=== PATIENT | female | born 1960 | race Caucasian/White ===

== ENCOUNTER → 2019-10-04 | Outpatient (CLI) | payer OTHER ==
[~2019-10-04] VITALS: Ht 180.3 cm; Wt 89.4 kg
[~2019-10-04] MED LIST: CLARITIN10 M3 PO; MELOXICAM15 MG PO; MULTIVITAMINS1 EAC7 PO; NEURONTIN300 MG PO; PRINIVIL20 M1 PO; PROBIOTIC1 EAC7 PO; PROTONIX40 M2 PO; TOPAMAX100 MG PO; TRAMADOL 50 MG50 MG PO; TRAMADOL HCL E100 MG PO; TYLENOL ARTHRI650 MG PO; VITAMIN B12-FO1 EAC1 PO; VITAMIN D3 COM1 EACH PO; ZANAFLEX4 M2 PO
[2019-10-04 08:43] VITALS: BP 123/70
--- NOTE | 2019-10-04 09:07 | NUR ---
Pain Clinic Assessment: 1. History of Osteoarthritis: HIPS History of Rheumatoid Arthritis: NONE 2. Height: 5 ft. 11 in. 180.3 cm. Weight: 197.0 lb. oz. 89.359 kg. Patient's BMI: 27.5 3. Vital Signs: BP: 123/70 Pulse: 81 Resp: 16 Temp: 02 Sat: 100 ECG Mon: 4. Pain Intensity: 3 10 MAX 5. Fall Risk: Dizziness: N Needs help standing or walking: Y Fallen in the last 3 months: N Fall risk comments: 6. Patient on Blood Thinner: None 7. History of Hypertension: N 8. Opioid Therapy greater than 6 weeks: N Opiate Contract Signed: 9. Risk Assessment Tool Provided: 10. Functional Assessment Tool: 11. Recreational Drug Use: Never Drug Type: Tobacco Use: Never Smoker Tobacco Type: Amount or Packs/day: How Many Years: Alcohol Use: No Frequency: Quant:
--- NOTE | 2019-10-18 11:25 | HPC ---
[facility] [address] [address] PAIN MANAGEMENT CONSULTATION Name: AUSTYN GARRIDO Room #: REG [facility] VenkataYoselyn#: [id number] Admission: 10/04/19 Attend Phys: Cj Mon MD Discharge: Date of : 56 Report #: [id number] THIS REPORT FOR: cc: MILAGROS KNOWLES Physician not on staff Cj Mon MD ~ CC: MILAGROS Mon Physician staff DATE OF SERVICE: 10/04/2019 CHIEF COMPLAINT: Left hip pain. HISTORY: The patient is a 59-year-old female who has been referred to the pain clinic for evaluation. The patient has a history of chronic arthritis. She has had problems with her hips since 2013. Majority of her pain occurs at night. She describes it as a constant discomfort that refuses to leave. "It's like a cramp, I just want relief." Notes that the pain is worse when she is sleeping or trying to sleep. Pain improves when she changes position at times. Describes as continuous, aching and rates it as a 3/10 today. It can average between 3-8/10. She has been told that she has left hip, which is quite arthritic. It needs replacement. She was considering having the knee replaced. She has had a bicuspid heart valve. Her heart problem became more problematic and she required valve replacement. She underwent the heart replacement and now is contemplating hip surgery in the near future. Pain is quite problematic. She is unable to rest because of the discomfort. She has used tramadol and found it beneficial. She has used tizanidine for muscle relaxant. She has been referred to the pain center for management of her discomfort at this point. ALLERGIES: CODEINE, OXYCODONE, PAIN MEDICINES, PERCOCET 10/325, TYLENOL WITH CODEINE NO. 3. CURRENT MEDICATIONS: Gabapentin 300 mg 4 tablets by mouth at night. Lisinopril 20 mg once daily, tizanidine 4 mg, topiramate 200 mg, tramadol 50 mg once daily, Voltaren transdermal gel, Xarelto 20 mg, Zofran 4 mg. PAST MEDICAL HISTORY: Anxiety disorder, arthralgia pelvis, hip, left femur, diarrhea, essential hypertension, laryngopharyngeal reflux, obesity. PAST SURGICAL HISTORY: Heart valve replacement on 04/26/2019. Complete hysterectomy in 2006, cholecystectomy in 04/2016, tonsils in the 3rd grade. 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 She [place] [address] PAIN MANAGEMENT CONSULTATION Name: AUSTYN GARRIDO Room #: REG [facility]#: [id number] Admission: 10/04/19 Attend Phys: Cj Mon MD Discharge: Date of : 56 Report #: [id number] REVIEW OF SYSTEMS: Generally good health, recent weight loss, wears glasses, blurred vision, hearing loss, heart trouble, loss of appetite, headaches, hair and nail changes, lightheadedness, dizziness, memory loss, confusion, depression. LABORATORY DATA: MRI of the left hip dated 09/08/2019. Findings: Left hip degenerative joint disease with severe chondral thinning. Marginal osteophytes. There is acetabular protrusion. No evidence of fracture, marrow edema or aggressive bone destruction. No evidence of femoral head osteonecrosis. Diffuse labral irregularity and distortion. No paralabral cyst. Trace fluid in the left hip joint. No evidence of acute soft tissue or muscle abnormality. Large field of view coronal survey sequence demonstrates no acute findings at the contralateral hip or evidence within the field of view. IMPRESSION: 1. 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 2. Labral degeneration and degenerative tearing. PAIN CLINIC ASSESSMENT AND PQRS: 1. History of osteoarthritis. The patient has some hip problems involving the left hip. 2. Rheumatoid arthritis. The patient is not being treated for rheumatoid arthritis. 3. Height 5 feet 11 inches, weight 197 pounds, BMI is 27.7. 4. Vital signs: Blood pressure 123/70, pulse 81, respiratory rate 16, room air saturation 100%. 5. Pain intensity, 3 to maximum of 10 depending on activity. 6. Fall history. The patient has not fallen in the last 3 months. 7. Blood thinner. The patient is not on a blood thinning medication. 8. Hypertension. The patient is not being treated for hypertension. 9. Opioids greater than 6 weeks. The patient received medication from her primary. 10. Risk assessment tool, low for opioid use. 11. Functional assessment tool, reviewed. 12. Recreational drug use. The patient denies. 13. Tobacco. The patient has never smoked. 14. Alcohol. The patient denies frequent use of alcoholic beverages. PHYSICAL EXAMINATION: GENERAL: The patient is a well-developed, well-nourished, white female. Appears her stated age. She is alert and oriented x 3. Her affect is appropriate. Speech is fluent. HEENT: Normocephalic, atraumatic. Extraocular eye muscles intact. Sclerae nonicteric. Mucous membranes are moist. The patient is wearing a mask. NECK: Without JVD or adenopathy. EXTREMITIES: Upper extremity muscle strength judged to be 5/[address] [address] PAIN MANAGEMENT CONSULTATION Name: AUSTYN GARRIDO Room #: REG [facility]#: [id number] Admission: 10/04/19 Attend Phys: Cj Mon MD Discharge: Date of : 56 Report #: [id number] muscle groups in the upper extremity. Deep tendon reflexes are trace at the biceps bilaterally. Mid Wife strength is within normal limits. The patient has heart rhythm, which is regular. No bruits noted in the neck or no murmurs. Lower extremity muscle strength judged to be 5/5 for the right lower extremity. The patient has pain and discomfort in the right hip area. Internal and external rotation cause some discomfort. The patient has pain that radiates from her right hip into the groin area. IMPRESSION: 1. Chronic left hip pain with severe left hip degenerative joint disease with acetabular protrusio. 2. Anxiety disorder. 3. Arthralgia pelvis, hip, left femur. 4. Diarrhea. 5. Essential hypertension. 6. Laryngopharyngeal reflux. 7. Obesity. RECOMMENDATIONS: We discussed treatment options with the patient. She has found tramadol to be helpful. Use of other narcotics have been quite problematic. Even after her heart surgery, she only used tramadol. A script for her medications of tramadol has been provided. The patient will continue with tramadol 1 tablet of 100 mg extended release. She will also continue with tizanidine p.r.n. for muscle spasms. She will call us if she has any concerns regarding her medications. We would like to thank you for letting us participate in her care. We hope she continues to improve. <ELECTRONICALLY SIGNED> By: Cj Mon MD 10/18/19 1125 [id number] Cj Mon MD /[facility]
== END ==
LOC: PAIN 06:57
PROVIDERS: ATTEND Anesthesiology Pain Medicine
DX: M16.12 Unilateral primary osteoarthritis, left hip (principal); Z79.899 Other long term (current) drug therapy

== ENCOUNTER → 2019-11-01 | Outpatient (CLI) | payer OTHER ==
[~2019-11-01] VITALS: Ht 180.3 cm; Wt 91.2 kg
[~2019-11-01] MED LIST changes: +TOPAMAX 25 MG T25 MG PO; +TOPROL XL25 MG PO; +TRAMADOL HCL E200 MG PO
[2019-11-01 08:11] VITALS: BP 142/96
--- NOTE | 2019-11-01 08:17 | NUR ---
Pain Clinic Assessment: 1. History of Osteoarthritis: HIPS History of Rheumatoid Arthritis: NONE 2. Height: 5 ft. 11 in. 180.3 cm. Weight: 201.0 lb. oz. 91.173 kg. Patient's BMI: 28.0 3. Vital Signs: BP: 142/96 Pulse: 96 Resp: 16 Temp: 02 Sat: 100 ECG Mon: 4. Pain Intensity: 5-6 5. Fall Risk: Dizziness: N Needs help standing or walking: N Fallen in the last 3 months: N Fall risk comments: 6. Patient on Blood Thinner: None 7. History of Hypertension: N 8. Opioid Therapy greater than 6 weeks: N Opiate Contract Signed: 9. Risk Assessment Tool Provided: LOW-0 10. Functional Assessment Tool: 36 11. Recreational Drug Use: Never Drug Type: Tobacco Use: Never Smoker Tobacco Type: Amount or Packs/day: How Many Years: Alcohol Use: No Frequency: Quant:
--- NOTE | 2019-11-08 23:51 | HPC ---
[facility] [place] [address] [place] [address] PAIN MANAGEMENT CONSULTATION Name: AUSTYN GARRIDO Room #: REG [facility] Venkata#: [id number] Admission: 11/01/19 Attend Phys: Cj Mon MD Discharge: Date of : 56 Report #: [id number] THIS REPORT FOR: cc: MILAGROS KNOWLES Physician not on staff Cj Mon MD ~ CC: MILAGROS Mon Physician staff DATE OF SERVICE: 11/01/2019 CHIEF COMPLAINT: Continued left hip replacement and left thigh pain. HISTORY: The patient is a 59-year-old female who has been followed in the pain clinic. As you may recall, she suffers from chronic arthritis. It involves her left thigh and hip. Pain has been problematic since 04/2013. She rates it today as a 5-6/10. Pain is problematic when she is lying down, sitting, walking and standing. Pain is improved with use of medications and cold. She has returned today for renewal of her medication. As you may recall, she has a significant reaction to opioid medications. The medication which has been most helpful has been tramadol. She has returned for renewal of her medication. ALLERGIES: CODEINE, OXYCODONE, PAIN MEDICATIONS, PERCOCET 10/325, TYLENOL WITH CODEINE NO. 3. PAIN CLINIC ASSESSMENT AND PQRS: 1. History of osteoarthritis. The patient has osteoarthritic problems involving her hip on the left side. 2. Rheumatoid arthritis. The patient is not being treated for rheumatoid arthritis. 3. Height 5 feet 11 inches, weight 201 pounds, BMI is 28.0. 4. Vital Signs: Blood pressure 142/96, pulse 96, respiratory rate 16, room air saturation 100%. 5. Pain intensity 5-6/10. 6. Fall history: The patient has not fallen. Does walk with a cane. 7. Blood thinner. The patient is not on a blood thinning medication. 8. Hypertension. The patient is not being treated for hypertension. 9. Opioids greater than 6 weeks. The patient receives medication from her primary. 10. Risk assessment tool, low for opioid use. 11. Functional assessment tool 36. 12. Recreational drug use. The patient denies. 13. Tobacco: The patient has never smoked. 14. Alcohol. The patient denies use of alcoholic beverages. [address] [address] PAIN MANAGEMENT CONSULTATION Name: LUIS MANUEL GARRIDOLALO De La Cruz Room #: REG [facility]#: [id number] Admission: 11/01/19 Attend Phys: Cj Mon MD Discharge: Date of : 56 Report #: [id number] PHYSICAL EXAMINATION: GENERAL: The patient is a well-developed, well-nourished white female. Appears her stated age. She is alert and oriented x 3. Her affect is appropriate. Speech is fluent. HEENT: Normocephalic, atraumatic. Extraocular eye muscles are intact. Sclerae nonicteric. Mucous membranes are moist. The patient is wearing a mask. NECK: Without JVD or adenopathy. MUSCULOSKELETAL: Muscle strength in the upper extremity is judged to be 5/5 for the major muscle groups in the upper extremity. Lower extremity, the patient has pain and discomfort involving the left hip. Notes increased pain and discomfort with internal rotation, external rotation and certain movements. Notes that she has pain that radiates into the groin area. Rates her muscle strength in the lower extremity on the right side 5/5 for the major muscle groups and 4+/5 on the left side. IMPRESSION: 1. Chronic left hip pain with severe left hip degenerative joint disease with acetabular protrusio. 2. Anxiety disorder. 3. Arthralgia pelvic, hip, left femur. 4. Diarrhea. 5. Essential hypertension. 6. Laryngopharyngeal reflux. 7. Obesity. RECOMMENDATIONS: We discussed treatment options with the patient. The patient feels that her medications continue to be helpful. It is not as effective as she would like. Still having pain and discomfort in the left hip area with pain down into the groin area on the left side. The patient would like to try tramadol extended release. She notes that the tramadol is helpful, but it oftentimes wears off early. She would like to try the tramadol 200 mg extended release. We will have the patient give this medication a try. A script for tramadol 200 mg ER has been forwarded to her [employer] [employer] store. She will also continue with tizanidine, the muscle relaxant. She will call us if she has any concerns about the new medication. We would like to thank you for letting us participate in her care. We hope she continues to improve. <ELECTRONICALLY SIGNED> By: Cj Mon MD 11/08/19 [id number] 08 Cj Mon MD /juana
== END ==
LOC: PAIN 06:47
PROVIDERS: ATTEND Anesthesiology Pain Medicine
DX: M25.552 Pain in left hip (principal); M79.652 Pain in left thigh; M16.12 Unilateral primary osteoarthritis, left hip; F41.9 Anxiety disorder, unspecified; R19.7 Diarrhea, unspecified; I10 Essential (primary) hypertension; E66.9 Obesity, unspecified; K21.9 Gastro-esophageal reflux disease without esophagitis; Z88.8 Allergy status to other drugs, medicaments and biological substances; Z79.899 Other long term (current) drug therapy; Z96.652 Presence of left artificial knee joint; Z96.642 Presence of left artificial hip joint

== ENCOUNTER → 2019-12-01 | Outpatient (CLI) | payer OTHER ==
[~2019-12-01] VITALS: Ht 180.3 cm; Wt 89.6 kg
[~2019-12-01] MED LIST changes: +SERTRALINE HCL100 MG PO; +TIZANIDINE HCL4 M1 PO
[2019-12-01 08:04] VITALS: BP 135/85
--- NOTE | 2019-12-01 08:10 | NUR ---
Pain Clinic Assessment: 1. History of Osteoarthritis: HIPS KNEES History of Rheumatoid Arthritis: NONE 2. Height: 5 ft. 11 in. 180.3 cm. Weight: 197.6 lb. oz. 89.631 kg. Patient's BMI: 27.6 3. Vital Signs: BP: 135/85 Pulse: 76 Resp: 16 Temp: 02 Sat: 99 ECG Mon: 4. Pain Intensity: 3-4 5. Fall Risk: Dizziness: N Needs help standing or walking: N Fallen in the last 3 months: N Fall risk comments: 6. Patient on Blood Thinner: None 7. History of Hypertension: N 8. Opioid Therapy greater than 6 weeks: N Opiate Contract Signed: 9. Risk Assessment Tool Provided: LOW-0 10. Functional Assessment Tool: 11. Recreational Drug Use: Never Drug Type: Tobacco Use: Never Smoker Tobacco Type: Amount or Packs/day: How Many Years: Alcohol Use: No Frequency: Quant:
--- NOTE | 2019-12-15 15:50 | HPC ---
[facility] [place] [address] [place] [address] PAIN MANAGEMENT CONSULTATION Name: AUSTYN GARRIDO Room #: REG [facility] VenkataYoselyn#: [id number] Admission: 12/01/19 Attend Phys: Cj Mon MD Discharge: Date of : 56 Report #: [id number] THIS REPORT FOR: cc: MILAGROS KNOWLES Physician not on staff Cj Mon MD ~ CC: MILAGROS Mon Physician staff DATE OF SERVICE: 12/01/2019 CHIEF COMPLAINT: Left thigh, hip and knee pain. HISTORY: The patient is a 59-year-old female who has been followed in the pain clinic. She has problems with her left side. It involves her left hip and thigh. She has had problems with this since 2013. The pain continues to be quite problematic. Pain is 3-4/10 today. She notes that her pain is worse when she is sitting, walking, standing and lying down, can be problematic as well. Pain is improved with use of medications as well as with cold packs. She has returned today with the hopes of renewing her medication. She also finds that tramadol is beneficial as well. ALLERGIES: CODEINE, OXYCODONE, PAIN MEDICATIONS, PERCOCET 10/325, TYLENOL WITH CODEINE NO. 3. PAIN CLINIC ASSESSMENT AND PQRS: 1. The patient does have a history of osteoarthritis. She has osteoarthritic changes involving her left hip and side. She is not being treated for rheumatoid arthritis. 2. Height 5 feet 11 inches, weight 197 pounds, BMI is 27. 3. Vital Signs: Blood pressure 135/85, pulse 76, respiratory rate 16, room air saturation 99%. 4. Pain intensity 3-4 with moving. 5. The patient is not experiencing much discomfort while sitting. 6. Fall history: The patient has not fallen since we saw her last. The patient does walk with a cane. 7. Blood thinner. The patient is not on a blood thinning medication. 8. Hypertension. The patient is being treated for hypertension. 9. Opioids. The patient received medication from the pain clinic. 10. Risk assessment tool, low for opioid use. 11. Functional assessment tool 36/70. 12. Recreational drug use. The patient denies. 13. Tobacco: The patient denies use of tobacco. 14. Alcohol. The patient denies significant use of alcoholic beverages. [address] [address] PAIN MANAGEMENT CONSULTATION Name: AUSTYN GARRIDO [id number] Admission: 12/01/19 Attend Phys: Cj Mon MD Discharge: Date of : 56 Report #: [id number] PHYSICAL EXAMINATION: GENERAL: The patient is a well-developed, well-nourished white female. Appears her stated age. She is alert and oriented x 3. Her affect is appropriate. Speech is fluent. HEENT: Normocephalic, atraumatic. Extraocular eye muscles intact. Sclerae nonicteric. Mucous membranes are moist. The patient is wearing a facial covering. NECK: Without JVD or adenopathy. LUNGS: Clear. ABDOMEN: Nontender. MUSCULOSKELETAL: Upper extremity muscle strength judged to be 5/5 for the major muscle groups in the upper extremity. Lower extremity, the patient has pain involving the left hip. She has pain that increases with internal rotation, external rotation and movement of her hip. The patient does also have pain that radiates into the groin area. Muscle strength in the right lower extremity 5/5 for the major muscle groups and movement on the left side is 4+/5 because of pain. IMPRESSION: 1. Chronic left hip pain with severe left hip degeneration with acetabular protrusio. 2. Anxiety disorder. 3. Arthralgia of the pelvis, hip, and left femur. 4. Diarrhea. 5. Essential hypertension. 6. Laryngopharyngeal reflux. 7. Obesity. RECOMMENDATIONS: We discussed treatment options with the patient. At this juncture, we will continue with her medications. She does have the desire to undergo surgery in the coming year. She feels that her medications are helpful. A script for her medications of tramadol 200 mg extended release has been forwarded to [facility]. She does feel that this medication at this dose is helpful. She will also continue with tizanidine the muscle relaxant. She has been provided with a script for tizanidine 4 mg 2 tablets at bedtime, total of 8 mg. We would like to thank you for letting us participate in her care. We hope she continues to improve. <ELECTRONICALLY SIGNED> By: Cj Mon MD 12/15/19 [id number] [id number] Cj Mon MD /nt
== END ==
LOC: PAIN 06:46
PROVIDERS: ATTEND Anesthesiology Pain Medicine
DX: M79.652 Pain in left thigh (principal); M25.552 Pain in left hip; M25.562 Pain in left knee; F41.9 Anxiety disorder, unspecified; R19.7 Diarrhea, unspecified; I10 Essential (primary) hypertension; K21.9 Gastro-esophageal reflux disease without esophagitis; E66.9 Obesity, unspecified; Z88.5 Allergy status to narcotic agent; Z79.899 Other long term (current) drug therapy

== ENCOUNTER → 2019-12-29 | Outpatient (CLI) | payer OTHER ==
[~2019-12-29] VITALS: Ht 152.4 cm; Wt 88.9 kg
[~2019-12-29] MED LIST changes: +LYRICA 75 MG CA75 MG PO
--- NOTE | ~2019-12-29 | HPC ---
[facility] [address] [address] PAIN MANAGEMENT CONSULTATION Name: AUSTYN GARRIDO Room #: REG [facility] Cyrus#: [id number] Admission: 12/29/19 Attend Phys: Cj Mon MD Discharge: Date of : 56 Report #: [id number] CC: WHIT Mon Physician staff DATE OF SERVICE: 12/29/2019 PRIMARY CARE PHYSICIAN: Dr. Whit Benson. CHIEF COMPLAINT: Left thigh and hip pain as well as knee pain. HISTORY: The patient is a 59-year-old female who has been followed in the pain clinic. She has left-sided pain involves her left hip and thigh. The pain has been problematic since 2013. She rates the pain today as 4/10. It involves her left hip and sometimes it involves her knee as well. Pain is worse when she is standing and walking. Feels that use of her medications is helpful. She also uses cold packs. She has found that her medications continue to be helpful. She has returned today for renewal of her medications. She finds that tramadol is the most efficacious medication. The other narcotic medications have been somewhat problematic in the past. ALLERGIES: CODEINE, OXYCODONE, OTHER PAIN MEDICATIONS, PERCOCET 10/325, TYLENOL WITH CODEINE 3. PAIN CLINIC ASSESSMENT AND PQRS: 1. The patient does have a history of osteoarthritis. She has osteoarthritic changes involving her left hip and thigh. She is not being treated for rheumatoid arthritis. She has some osteoarthritic problems with her knee. Height 5 feet 11 inches, weight 196 pounds, BMI is ____. 2. Vital Signs: Blood pressure 132/84, pulse 88, respiratory rate 18, room air saturation 98%, temperature is not recorded. 3. Pain intensity 07/13. 4. Fall risk. The patient has not fallen since we saw her last, does walk with a cane. 5. Blood thinner. The patient is not on a blood thinning medication. 6. Hypertension. The patient is not being treated for hypertension. 7. Opioids greater than 6 weeks. The patient receives medications from one source. 8. Risk assessment tool, low for opioid use. 9. Functional assessment tool, . 10. Recreational drug use. The patient denies. 11. Tobacco: The patient has never smoked. 12. Alcohol: The patient denies use of alcohol. PHYSICAL EXAMINATION: GENERAL: The patient is a well-developed, well-nourished white female. Appears her stated age. She is alert and oriented x 3. Her affect is appropriate. Speech is fluent. HEENT: Normocephalic, atraumatic. Extraocular eye muscles intact. Sclerae nonicteric. Mucous membranes are moist. The patient is wearing a facial covering. NECK: Without JVD or adenopathy. LUNGS: Clear. ABDOMEN: Nontender. MUSCULOSKELETAL: Upper extremity muscle strength judged to be 5/5 for the major muscle groups in the upper extremity. Lower extremity, the patient has pain involving her left hip. She has pain that increases with internal and external rotation. Notes increased pain with range of motion of her hips. The patient notes some of the pain radiates into the groin area. Muscle strength in the right lower extremity, 5/5 for the major muscle group in the lower extremity. Left side, 4+/5 because of pain. IMPRESSION: 1. Chronic left hip pain with severe left hip degeneration with acetabular protrusio. 2. Anxiety disorder. 3. Arthralgia of the pelvis, hip, and left femur. 4. Diarrhea. 5. Essential hypertension. 6. Laryngopharyngeal reflux. 7. Obesity. RECOMMENDATIONS: We discussed treatment options with the patient. At this juncture, she feels that her medications are helpful. She is unable to take the more opioid medications. Tramadol is the only medication that she can tolerate. A script for her medication has been rewritten. The patient will continue with the medications as prescribed. She will give us a call if she has any concerns. She will continue with tizanidine 4 mg 2 tablets at bedtime. She will also continue with tramadol 200 mg as prescribed. Her medications have been forwarded to [facility]. By: [id number] Cj Mon MD /CHEO
[2019-12-29 08:15] VITALS: BP 132/81
--- NOTE | 2019-12-29 08:17 | NUR ---
Pain Clinic Assessment: 1. History of Osteoarthritis: HIPS KNEES History of Rheumatoid Arthritis: NONE 2. Height: 5 ft. 11 in. 152.4 cm. Weight: 196.0 lb. oz. 88.905 kg. Patient's BMI: 38.3 3. Vital Signs: BP: 132/81 Pulse: 88 Resp: 18 Temp: 02 Sat: 98 ECG Mon: 4. Pain Intensity: 4 5. Fall Risk: Dizziness: N Needs help standing or walking: N Fallen in the last 3 months: N Fall risk comments: 6. Patient on Blood Thinner: None 7. History of Hypertension: N 8. Opioid Therapy greater than 6 weeks: N Opiate Contract Signed: 9. Risk Assessment Tool Provided: LOW-0 10. Functional Assessment Tool: 36 11. Recreational Drug Use: Never Drug Type: Tobacco Use: Never Smoker Tobacco Type: Amount or Packs/day: How Many Years: Alcohol Use: No Frequency: Quant:
== END ==
LOC: PAIN 06:54
PROVIDERS: ATTEND Anesthesiology Pain Medicine
DX: M16.12 Unilateral primary osteoarthritis, left hip (principal); E66.9 Obesity, unspecified; K21.9 Gastro-esophageal reflux disease without esophagitis; I10 Essential (primary) hypertension; R19.7 Diarrhea, unspecified; F41.9 Anxiety disorder, unspecified; M25.562 Pain in left knee; Z88.8 Allergy status to other drugs, medicaments and biological substances; Z79.899 Other long term (current) drug therapy

== ENCOUNTER → 2020-01-24 | Outpatient (CLI) | payer OTHER ==
[~2020-01-24] VITALS: Ht 180.3 cm; Wt 92.1 kg
[2020-01-24 08:21] VITALS: BP 142/93
--- NOTE | 2020-01-24 08:32 | NUR ---
Pain Clinic Assessment: 1. History of Osteoarthritis: HIPS KNEES History of Rheumatoid Arthritis: NONE 2. Height: 5 ft. 11 in. 180.3 cm. Weight: 203.0 lb. oz. 92.080 kg. Patient's BMI: 28.3 3. Vital Signs: BP: 142/93 Pulse: 83 Resp: 16 Temp: 02 Sat: 99 ECG Mon: 4. Pain Intensity: 4 5. Fall Risk: Dizziness: Needs help standing or walking: Fallen in the last 3 months: Fall risk comments: 6. Patient on Blood Thinner: None 7. History of Hypertension: N 8. Opioid Therapy greater than 6 weeks: N Opiate Contract Signed: 9. Risk Assessment Tool Provided: LOW-0 10. Functional Assessment Tool: 36 11. Recreational Drug Use: Never Drug Type: Tobacco Use: Never Smoker Tobacco Type: Amount or Packs/day: How Many Years: Alcohol Use: No Frequency: Quant:
--- NOTE | 2020-01-26 08:11 | HPC ---
[facility] [address] [place] [address] PAIN MANAGEMENT CONSULTATION Name: AUSTYN GARRIDO Room #: REG MARIA ALEJANDRA Bridges#: [id number] Admission: 01/24/20 Attend Phys: Cj Mon MD Discharge: Date of : 56 Report #: [id number] CC: MILARGOS Mon Physician staff DATE OF SERVICE: 01/24/2020 CHIEF COMPLAINT: Left hip pain and knee pain. HISTORY: The patient is a 59-year-old female who has been seen in the pain clinic because of chronic pain. The patient has an intolerance to opioid medications. She feels that her current medication regimen of tramadol was helpful. She also uses Lyrica. She feels that the Lyrica medication is helpful. She still has been having pain during the daytime. She was started on Lyrica 75 mg at the last visit. She only took one tablet. She felt that this may be causing her to stay awake. She feels that there may have been a small amount of improvement in her daytime pain. She is willing to take it twice a day at this juncture. She is concerned about her upcoming surgery. She is unable to tolerate opioid medications like morphine orally. She states that IV use of this medication was helpful with less GI complaints. ALLERGIES: CODEINE, OXYCODONE, OTHER PAIN MEDICATIONS, PERCOCET, TYLENOL WITH CODEINE. IV morphine was tolerated. PAIN CLINIC ASSESSMENT AND PQRS: 1. The patient does have a history of osteoarthritis. She has arthritic changes involving her left hip and thigh. She is not being treated for rheumatoid arthritis. She has some osteoarthritic problems with her knee. Height 5 feet 11 inches, weight 203 pounds, BMI is 28. 2. Vital signs: Blood pressure 142/93, heart rate 83, respiratory rate 16, room air saturation 99%. 3. Pain intensity /10. 4. Fall history: The patient has not fallen since we saw her last. 5. Blood thinner. The patient is not on a blood thinning medication. 6. Hypertension. The patient is being treated for hypertension. 7. Opioids greater than 6 weeks. The patient received medication from one source the pain clinic. 8. Risk assessment tool, low for opioid use. 9. Functional assessment tool 36/70. 10. Recreational drug use. The patient denies. 11. Tobacco: The patient has never smoked. 12. Alcohol: The patient denies use of alcoholic beverages. PHYSICAL EXAMINATION: GENERAL: The patient is a well-developed, well-nourished white female. Appears her stated age. She is alert and oriented x 3. Her affect is appropriate. Speech is fluent. HEENT: Normocephalic, atraumatic. Extraocular eye muscles intact. The patient is wearing a facial covering. NECK: Without adenopathy or JVD. LUNGS: Generally clear. HEART: Regular rate. ABDOMEN: Nontender. MUSCULOSKELETAL: Upper extremity judged to be 5/5 for the major muscle groups in the upper extremity. The patient has pain involving her left hip. She notes some increased pain with internal and external rotation. She notes pain with movement of her hip as well as in her knee. She has muscle strength rated at 5/5 for the major muscle groups in the lower extremity on the left side. A 4+ on the right. IMPRESSION: 1. 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 2. Anxiety disorder. 3. Arthralgia of the pelvis, hip and left femur. 4. Diarrhea. 5. Essential hypertension. 6. Laryngopharyngeal reflux. 7. Obesity. RECOMMENDATIONS: We discussed treatment options with the patient. At this juncture, we will continue with her medications. The patient will try Lyrica 75 mg b.i.d. She will also continue with the tramadol 200 mg. She will continue with Zanaflex, which is helpful. We discussed the possible options for her upcoming surgery. She may want to try a fentanyl patch. If she would be provided fentanyl for postoperative pain control, if she found that this was helpful without GI complaints, she could then be transitioned to this and go home with a few days of fentanyl patch medication for postop pain relief. We would like to thank you for letting us participate in her care. We hope she continues to improve. <ELECTRONICALLY SIGNED> By: Cj Mon MD 01/26/20 0811 [id number] Cj Mon MD /nt
== END ==
LOC: PAIN 06:48
PROVIDERS: ATTEND Anesthesiology Pain Medicine
DX: M25.562 Pain in left knee (principal); M25.552 Pain in left hip; E66.9 Obesity, unspecified; K21.9 Gastro-esophageal reflux disease without esophagitis; I10 Essential (primary) hypertension; R19.7 Diarrhea, unspecified; F41.9 Anxiety disorder, unspecified; M25.59 Pain in other specified joint; Z88.8 Allergy status to other drugs, medicaments and biological substances; Z79.899 Other long term (current) drug therapy

== ENCOUNTER → 2020-02-21 | Outpatient (CLI) | payer OTHER ==
[~2020-02-21] VITALS: Ht 180.3 cm; Wt 93.8 kg
--- NOTE | 2020-02-21 08:13 | NUR ---
Pain Clinic Assessment: 1. History of Osteoarthritis: HIPS KNEES History of Rheumatoid Arthritis: NONE 2. Height: 5 ft. 11 in. 180.3 cm. Weight: 206.8 lb. oz. 93.804 kg. Patient's BMI: 28.9 3. Vital Signs: BP: Pulse: 79 Resp: 16 Temp: 02 Sat: 99 ECG Mon: 4. Pain Intensity: 3-4 5. Fall Risk: Dizziness: N Needs help standing or walking: N Fallen in the last 3 months: N Fall risk comments: 6. Patient on Blood Thinner: None 7. History of Hypertension: N 8. Opioid Therapy greater than 6 weeks: N Opiate Contract Signed: 9. Risk Assessment Tool Provided: LOW-0 10. Functional Assessment Tool: 36 11. Recreational Drug Use: Never Drug Type: Tobacco Use: Never Smoker Tobacco Type: Amount or Packs/day: How Many Years: Alcohol Use: No Frequency: Quant:
== END ==
LOC: PAIN 06:46
PROVIDERS: ATTEND Anesthesiology Pain Medicine
DX: Z76.0 Encounter for issue of repeat prescription (principal); M16.12 Unilateral primary osteoarthritis, left hip; F41.9 Anxiety disorder, unspecified; M25.50 Pain in unspecified joint; I10 Essential (primary) hypertension; R19.7 Diarrhea, unspecified; K21.9 Gastro-esophageal reflux disease without esophagitis; Z88.8 Allergy status to other drugs, medicaments and biological substances; Z79.899 Other long term (current) drug therapy

== ENCOUNTER → 2020-03-20 | Outpatient (CLI) | payer OTHER ==
[~2020-03-20] VITALS: Ht 152.4 cm; Wt 99.8 kg
[~2020-03-20] MED LIST changes: +CRESTOR5 MG PO; +SINGULAIR 10 MG10 MG PO
[2020-03-20 08:10] VITALS: BP 144/88
--- NOTE | 2020-03-20 08:22 | NUR ---
Pain Clinic Assessment: 1. History of Osteoarthritis: HIPS KNEES History of Rheumatoid Arthritis: NONE 2. Height: 5 ft. 11 in. 152.4 cm. Weight: 220.0 lb. oz. 99.792 kg. Patient's BMI: 43.0 3. Vital Signs: BP: 144/88 Pulse: 74 Resp: 16 Temp: 02 Sat: 100 ECG Mon: 4. Pain Intensity: 4-5 WALKING 5. Fall Risk: Dizziness: N Needs help standing or walking: N Fallen in the last 3 months: N Fall risk comments: 6. Patient on Blood Thinner: None 7. History of Hypertension: Y 8. Opioid Therapy greater than 6 weeks: Y Opiate Contract Signed: 9. Risk Assessment Tool Provided: LOW-0 10. Functional Assessment Tool: 11. Recreational Drug Use: Never Drug Type: Tobacco Use: Never Smoker Tobacco Type: Amount or Packs/day: How Many Years: Alcohol Use: No Frequency: Quant:
== END ==
LOC: PAIN 06:51
PROVIDERS: ATTEND Anesthesiology Pain Medicine
DX: Z76.0 Encounter for issue of repeat prescription (principal); M16.12 Unilateral primary osteoarthritis, left hip; M24.7 Protrusio acetabuli; I10 Essential (primary) hypertension; E66.9 Obesity, unspecified; F41.9 Anxiety disorder, unspecified; Z88.5 Allergy status to narcotic agent

== ENCOUNTER → 2020-04-17 | Outpatient (CLI) | payer OTHER ==
[~2020-04-17] VITALS: Ht 180.3 cm; Wt 97.2 kg
[2020-04-17 08:09] VITALS: BP 145/82
--- NOTE | 2020-04-17 08:13 | NUR ---
Pain Clinic Assessment: 1. History of Osteoarthritis: HIPS KNEES History of Rheumatoid Arthritis: NONE 2. Height: 5 ft. 11 in. 180.3 cm. Weight: 214.2 lb. oz. 97.161 kg. Patient's BMI: 29.9 3. Vital Signs: BP: 145/82 Pulse: 77 Resp: 18 Temp: 02 Sat: 100 ECG Mon: 4. Pain Intensity: 4-5 5. Fall Risk: Dizziness: N Needs help standing or walking: N Fallen in the last 3 months: N Fall risk comments: 6. Patient on Blood Thinner: None 7. History of Hypertension: Y 8. Opioid Therapy greater than 6 weeks: N Opiate Contract Signed: 9. Risk Assessment Tool Provided: LOW-0 10. Functional Assessment Tool: 11. Recreational Drug Use: Never Drug Type: Tobacco Use: Never Smoker Tobacco Type: Amount or Packs/day: How Many Years: Alcohol Use: No Frequency: Quant:
== END ==
LOC: PAIN 06:47
PROVIDERS: ATTEND Anesthesiology Pain Medicine
DX: M16.12 Unilateral primary osteoarthritis, left hip (principal); G89.29 Other chronic pain; F41.9 Anxiety disorder, unspecified; R19.7 Diarrhea, unspecified; I10 Essential (primary) hypertension; K21.9 Gastro-esophageal reflux disease without esophagitis; E66.9 Obesity, unspecified

== ENCOUNTER → 2020-05-15 | Outpatient (CLI) | payer OTHER ==
[~2020-05-15] VITALS: Ht 180.3 cm; Wt 99.8 kg
[2020-05-15 08:10] VITALS: BP 134/79
--- NOTE | 2020-05-15 08:15 | NUR ---
Pain Clinic Assessment: 1. History of Osteoarthritis: HIPS KNEES History of Rheumatoid Arthritis: NONE 2. Height: 5 ft. 11 in. 180.3 cm. Weight: 220.0 lb. oz. 99.792 kg. Patient's BMI: 30.7 3. Vital Signs: BP: 134/79 Pulse: 78 Resp: 14 Temp: 02 Sat: 100 ECG Mon: 4. Pain Intensity: 5 5. Fall Risk: Dizziness: N Needs help standing or walking: N Fallen in the last 3 months: N Fall risk comments: 6. Patient on Blood Thinner: None 7. History of Hypertension: Y 8. Opioid Therapy greater than 6 weeks: N Opiate Contract Signed: 9. Risk Assessment Tool Provided: LOW-0 10. Functional Assessment Tool: 36 11. Recreational Drug Use: Never Drug Type: Tobacco Use: Never Smoker Tobacco Type: Amount or Packs/day: How Many Years: Alcohol Use: No Frequency: Quant:
== END ==
LOC: PAIN 06:47
PROVIDERS: ATTEND Anesthesiology Pain Medicine
DX: M16.12 Unilateral primary osteoarthritis, left hip (principal); G89.29 Other chronic pain; F41.9 Anxiety disorder, unspecified; I10 Essential (primary) hypertension; E66.9 Obesity, unspecified; K21.9 Gastro-esophageal reflux disease without esophagitis; R19.7 Diarrhea, unspecified; Z88.8 Allergy status to other drugs, medicaments and biological substances; Z79.899 Other long term (current) drug therapy

== ENCOUNTER → 2020-06-12 | Outpatient (CLI) | payer OTHER ==
[~2020-06-12] VITALS: Ht 180.3 cm; Wt 102.2 kg
[~2020-06-12] MED LIST changes: +TIZANIDINE HCL4 M2 PO
[2020-06-12 08:09] VITALS: BP 141/85
--- NOTE | 2020-06-12 08:16 | NUR ---
Pain Clinic Assessment: 1. History of Osteoarthritis: HIPS KNEES History of Rheumatoid Arthritis: NONE 2. Height: 5 ft. 11 in. 180.3 cm. Weight: 225.4 lb. oz. 102.241 kg. Patient's BMI: 31.5 3. Vital Signs: BP: 141/85 Pulse: 75 Resp: 16 Temp: 02 Sat: 98 ECG Mon: 4. Pain Intensity: 4 5. Fall Risk: Dizziness: N Needs help standing or walking: N Fallen in the last 3 months: N Fall risk comments: 6. Patient on Blood Thinner: None 7. History of Hypertension: Y 8. Opioid Therapy greater than 6 weeks: Y Opiate Contract Signed: 9. Risk Assessment Tool Provided: LOW-0 10. Functional Assessment Tool: 11. Recreational Drug Use: Never Drug Type: Tobacco Use: Never Smoker Tobacco Type: Amount or Packs/day: How Many Years: Alcohol Use: Yes Frequency: Special Occasions Quant: 1
== END ==
LOC: PAIN 06:42
PROVIDERS: ATTEND Clinical Nurse Specialist Adult Health
DX: M16.12 Unilateral primary osteoarthritis, left hip (principal); M25.562 Pain in left knee; F41.9 Anxiety disorder, unspecified; E66.9 Obesity, unspecified; F11.20 Opioid dependence, uncomplicated; I10 Essential (primary) hypertension; Z88.8 Allergy status to other drugs, medicaments and biological substances; Z79.899 Other long term (current) drug therapy

== ENCOUNTER → 2020-07-24 | Outpatient (CLI) | payer OTHER ==
[~2020-07-24] VITALS: Ht 180.3 cm; Wt 99.0 kg
[2020-07-24 08:01] VITALS: BP 125/82
--- NOTE | 2020-07-24 08:06 | NUR ---
Pain Clinic Assessment: 1. History of Osteoarthritis: HIPS KNEES History of Rheumatoid Arthritis: NONE 2. Height: 5 ft. 11 in. 180.3 cm. Weight: 218.2 lb. oz. 98.975 kg. Patient's BMI: 30.4 3. Vital Signs: BP: 125/82 Pulse: 68 Resp: 16 Temp: 02 Sat: 100 ECG Mon: 4. Pain Intensity: 7-8 5. Fall Risk: Dizziness: N Needs help standing or walking: N Fallen in the last 3 months: N Fall risk comments: 6. Patient on Blood Thinner: None 7. History of Hypertension: Y 8. Opioid Therapy greater than 6 weeks: Y Opiate Contract Signed: 06/12/20 9. Risk Assessment Tool Provided: LOW-0 10. Functional Assessment Tool: 11. Recreational Drug Use: Never Drug Type: Tobacco Use: Never Smoker Tobacco Type: Amount or Packs/day: How Many Years: Alcohol Use: Yes Frequency: Special Occasions Quant:
--- NOTE | 2020-07-31 08:14 | HPC ---
[facility] [address] [place] [address] PAIN MANAGEMENT CONSULTATION Name: AUSTYN GARRIDO [id number] Admission: 07/24/20 Attend Phys: Sahara Golden Discharge: Date of : 56 Report #: [id number] THIS REPORT FOR: cc: MILAGROS KNOWLES Physician not on staff Sahara Golden ~ DOC #: [id number] cc: Tor Jaeger, DO Sahara Golden, JOSLYN DATE OF SERVICE: 07/24/2020 CHIEF COMPLAINT: Chronic left hip pain and knee pain. HISTORY OF PRESENT ILLNESS: This is a very pleasant 60-year-old female who returns to the pain clinic today for renewal of her opioid medications. Today, she is reporting her pain slightly higher than her normal at 7-8/10. She states it is mostly problematic in her left hip with walking and left knee, though at times she also has ongoing right knee pain. She reports cramping sensation in her hips and aching sensation in her legs. She uses a cane with ambulation. She reports that her tramadol extended release is very beneficial as well as her adjunct medications, which she would like refills today. She denies any constipation or daytime somnolence with the use of her opioid medications. ALLERGIES: OPIOIDS AND CODEINE. CURRENT LIST OF MEDICATIONS: Tizanidine, Lyrica 75 mg b.i.d., tramadol extended release 200 mg daily, Singulair, Crestor, sertraline, Topamax, multivitamin, gabapentin, probiotic, multivitamin, Protonix, Claritin, meloxicam, lisinopril, Tylenol Arthritis. PQRS: 1. She has osteoarthritic changes in her knees and hips. Denies any rheumatoid arthritis. Height is 5 feet 11 inches, weight is 218, BMI is 30. 2. Vital signs: Blood pressure 125/82, pulse is 68, respirations 16, oxygen sat is 100. 3. Pain score 7-8. 4. Denies dizziness. Does need a cane for ambulation for balance and has not fallen in the last 3 months. 5. The patient is not on any blood thinners, but does take medicine for hypertension. Her opiate therapy is greater than 6 weeks, therefore an opioid signed contract is on the chart. Risk assessment is low. Functional assessment is 36/70. 6. Recreational drug use, she denies. She is not a smoker and occasionally drinks alcohol. According to the prescription monitoring system, she is due to fill her [address] [address] PAIN MANAGEMENT CONSULTATION Name: AUSTYN GARRIDO Room #: REG Dorothea Bridges#: [id number] Admission: 07/24/20 Attend Phys: Sahara Golden Discharge: Date of : 56 Report #: [id number] medications this week, filling them in a timely fashion. Her morphine milliequivalent is 20 MME per day according to the CDC guidelines. We will check a random drug screen on her at her next appointment. PHYSICAL EXAMINATION: GENERAL: This is alert and oriented, well-developed, well-nourished, well-hydrated 60-year-old female who appears her stated age, placing her current pain score at 7-8/10. She is a good historian. HEENT: Normocephalic, atraumatic. Extraocular eye muscles are intact. Speech is fluent. She is wearing a mask. MUSCULOSKELETAL: She is without significant scoliosis, kyphosis, or lordosis. Lower extremity strength is symmetrical at 5/5 with good sensation from L1-S2. She has tenderness in her left hip, radiates into her leg past her knee on the left and tenderness in her right knee. No edema noted bilaterally in her knees. She uses a cane for ambulation and has a slightly antalgic gait. IMPRESSION: 1. Chronic left hip pain with severe degenerative changes with acetabular protrusion. 2. Anxiety disorder. 3. Arthralgia of the pelvis, hip, and femur. 4. Essential hypertension. 5. Obesity. 6. Complex medication management under opioid agreement. We reviewed the fact that opiate medications are being used to provide analgesia adequate to support activities of daily living, not attempting to achieve a specific pain score on the 0-10 Visual Analog Scale. The current opiate medications are providing sufficient analgesia to allow the patient to participate in activities of daily living. The patient is not exhibiting any aberrant behavior suggestive of drug diversion. The patient is not having any adverse reactions to medications. The patient is not suffering from daytime somnolence or mental acuity changes. The patient is managing opiate-induced constipation with appropriate [id number] agents and dietary considerations. The patient was counseled on concern for caution with operating a motor vehicle while using opiate medications. PLAN: 1. We discussed treatment options with the patient today. The patient finds her medications beneficial in helping control her pain and would like to continue those medications. We will have Dr. Mon send electronically her tramadol 200 mg ER #30 for 1 month. The patient will then return in 1 month for followup visit. 2. We will continue her on her Lyrica and tizanidine, 1 month prescription sent for each of these medications as well. 3. The patient reports going to a support group for her upcoming total knee [address] [address] PAIN MANAGEMENT CONSULTATION Name: AUSTYN GARRIDO Room #: REG [facility]#: [id number] Admission: 07/24/20 Attend Phys: Sahara Golden Discharge: Date of : 56 Report #: [id number] replacement per insurance requirements. She is hopeful to have a date scheduled soon. We did discuss pain control postoperatively since the patient has problems with other opioids other than tramadol. I encouraged that medication to be given postoperatively, reminding her no more than 4 tablets of 50 mg tramadol a day. Time spent with the patient in consultation, in reviewing recent studies and clinical notes and physician reports, physical exam and correlation of findings, medical documentation to determine, possible treatment options is 16 minutes. Time spent in preparation for appointment review and Prescription Monitoring reports, reviewing previous records and proposed treatment options, reviewing current medications is 5 minutes. Time spent preparing and sending electronic prescriptions with collaborating physician, Dr. Chay Mon, documentation of visit and plan of treatment is 5 minutes. Total time spent is 26 minutes. JOSLYN Jimenes/FAZAL/RAF <ELECTRONICALLY SIGNED> By: Sahara Golden 07/31/20 0814 [id number] Sahara Golden /juana
== END ==
LOC: PAIN 07:14
PROVIDERS: ATTEND Clinical Nurse Specialist Adult Health
DX: M25.552 Pain in left hip (principal); M24.7 Protrusio acetabuli; I10 Essential (primary) hypertension; E66.9 Obesity, unspecified; F41.9 Anxiety disorder, unspecified; Z79.891 Long term (current) use of opiate analgesic; Z79.899 Other long term (current) drug therapy

== ENCOUNTER → 2020-08-21 | Outpatient (CLI) | payer OTHER ==
[~2020-08-21] VITALS: Ht 180.3 cm; Wt 99.9 kg
[2020-08-21 08:17] VITALS: BP 139/89
--- NOTE | 2020-08-21 08:30 | NUR ---
Pain Clinic Assessment: 1. History of Osteoarthritis: HIPS KNEES History of Rheumatoid Arthritis: NONE 2. Height: 5 ft. 11 in. 180.3 cm. Weight: 220.2 lb. oz. 99.882 kg. Patient's BMI: 30.7 3. Vital Signs: BP: 139/89 Pulse: 89 Resp: 20 Temp: 02 Sat: 97 ECG Mon: 4. Pain Intensity: 4 5. Fall Risk: Dizziness: N Needs help standing or walking: Y Fallen in the last 3 months: N Fall risk comments: 6. Patient on Blood Thinner: None 7. History of Hypertension: Y 8. Opioid Therapy greater than 6 weeks: Y Opiate Contract Signed: 06/12/20 9. Risk Assessment Tool Provided: LOW-0 10. Functional Assessment Tool: 11. Recreational Drug Use: Never Drug Type: Tobacco Use: Never Smoker Tobacco Type: Amount or Packs/day: How Many Years: Alcohol Use: Yes Frequency: Special Occasions Quant: 1
--- NOTE | 2020-08-21 14:39 | HPC ---
[facility] [address] [address] PAIN MANAGEMENT CONSULTATION Name: AUSTYN GARRIDO Room #: REG [facility].#: [id number] Admission: 08/21/20 Attend Phys: Sahara Golden Discharge: Date of : 56 Report #: [id number] THIS REPORT FOR: cc: MILAGROS KNOWLES Physician not on staff Sahara Golden ~ DOC #: [id number] cc: Elvira Mon MD DATE OF SERVICE: 08/21/2020 CHIEF COMPLAINT: Chronic left hip pain and knee pain. HISTORY OF PRESENT ILLNESS: As you know, this is a very pleasant 60-year-old female who returns to the pain clinic today for renewal of her medications. Today, the patient reports that she had a total left hip replacement on 08/09 and is doing quite well. Today, she is here utilizing a walker. She describes her pain as a muscle soreness and crampy sensation. Pain she was experiencing in her hip is much relieved since her surgery. Today, she rates her pain score at 4/10. It is worse with walking and prolonged standing. She has been utilizing using her walker at home and a cane, her leg is tired at the end of the day after her exercises and she has been utilizing her medication as well as heat and ice and feels that those are both beneficial. Today, she would like refills of her tramadol and Lyrica. The patient reports that while in the hospital for her hip replacement. She did have issues with her blood pressure. She had hypotension per her report and she is now off her meloxicam, tizanidine and lisinopril. They believe a combination of these medications caused her blood pressure to go low. She had been off her meloxicam for greater than a week prior to her surgery. Today, her blood pressure is 139/89 and the patient reports that is elevated at home as well. ALLERGIES: OPIOIDS AND CODEINE. CURRENT LIST OF MEDICATIONS: Tramadol ER 200 mg daily, Lyrica 75 mg b.i.d., Singulair, Crestor, sertraline, Topamax, multivitamin, gabapentin, probiotic, vitamin D, Protonix, Claritin and Tylenol Arthritis. PQRS: 1. She has osteoarthritis in her hips and knees. Denies any rheumatoid arthritis. 2. Height is 5 feet 11 inches, weight is 220, BMI is 30. 3. Vital signs, blood pressure 139/89, pulse is 89, respirations 20, oxygen sat is 97%. Pain score is 4/10. 4. Fall risk, denies dizziness, does use a walker currently due to her surgery. She has not fallen in the last [address] [place] [address] PAIN MANAGEMENT CONSULTATION Name: RADHIKAAUSTYN J Room #: REG [facility] [place]#: [id number] Admission: 08/21/20 Attend Phys: Sahara Golden Discharge: Date of : 56 Report #: [id number] 5. The patient is not on any blood thinners, but does take medicine for hypertension. 6. Opioid therapy is greater than six weeks; therefore, an opioid signed contract is on the chart. 7. Risk assessment is low. Functional assessment is 36/70. 8. Recreational drug use, she denies. She is not a smoker and occasionally drinks alcohol. According to the prescription monitoring system her morphine mEq is less than 20. She does feel appropriate in a timely fashion. We will check a random drug screen on her at her next visit. PHYSICAL EXAMINATION: GENERAL: This is alert and orientated well-developed, well-nourished 60-year-old female who appears her stated age, rating her pain score today at 4/10, she is a good historian. HEENT: Normocephalic and atraumatic. Extraocular muscles are intact. She is wearing a mask. MUSCULOSKELETAL: She is without significant scoliosis, kyphosis, or lordosis. Slight edema in her left hip and left upper thigh. Well-healed approximated scar with some ecchymosis noted. No edema below her knees bilaterally. She uses a walker for ambulation. She has an antalgic gait. Tenderness at the left hip from postoperative healing. Tenderness in her left knee with increased pain with range of motion, flexion and extension. IMPRESSION: 1. Chronic left hip pain with severe degenerative changes with recent total left hip replacement. 2. Anxiety disorder. 3. Arthralgias of the pelvis, hip and knee. 4. Essential hypertension. 5. Obesity. 6. Complex medical management utilizing scheduled opioid medications. We reviewed the fact that opiate medications are being used to provide analgesia adequate to support activities of daily living, not attempting to achieve a specific pain score on the 0-10 Visual Analog Scale. The current opiate medications are providing sufficient analgesia to allow the patient to participate in activities of daily living. The patient is not exhibiting any aberrant behavior suggestive of drug diversion. The patient is not having any adverse reactions to medications. The patient is not suffering from daytime somnolence or mental acuity changes. The patient is managing opiate-induced constipation with appropriate zqwl-ukm-eihwojg agents and dietary considerations. The patient was counseled on concern for caution with operating a motor vehicle while using opiate medications [facility] [address] [place] [address] PAIN MANAGEMENT CONSULTATION Name: AUSTYN GARRIDO Room #: REG [facility]#: [id number] Admission: 08/21/20 Attend Phys: Sahara Golden Discharge: Date of : 56 Report #: [id number] A physical exam was performed and the patient's functional status was evaluated. All patients with back pain were advised against the bed rest greater than 4 days and were advised to return to normal activities. Pain score assessment was noted and the treatment plan was reviewed with the patient. All current medications, both prescribed and OTC were reviewed and reconciled on the electronic medical record. Tobacco screening was accomplished and smoking cessation was advised when indicated. BMI was noted and diet/exercise modification was recommended for all patients following outside normal parameters I reviewed with the patient today their responsibilities to safeguard prescription medications, reviewed their responsibility to utilize medications only as prescribed by the physician. They are to seek and receive pain medications only from 1 physician group ( [facility]). They are to use 1 pharmacy and keep the clinic informed if they change pharmacies. Their responsibilities include making followup visits in a timely fashion and to avoid abrupt discontinuation of medication usage. Their responsibilities further include bringing their medications (bottles from the pharmacy with residual pills) to the visit for possible confirmation of pill counts and the patient understands it is their responsibility to submit to random drug screens to ensure both that the medications prescribed are present, and that no other controlled substances are present. All prescriptions provided today were generated electronically. PLAN: 1. We discussed treatment options with the patient today. The patient finds her tramadol ER 200 mg beneficial in reducing her pain and continues to take that only at bedtime with no other breakthrough pain medications. We will have Dr. Mon sent electronically one month of this medication. 2. The patient recently had her total hip replaced and did not take any medications at discharge for opioid medications. The orthopedic gave her hydrocodone, but the patient did not fill due to adverse reactions to this medication. She utilized Tylenol Arthritis medicines at home. 3. The patient is now off her meloxicam and tizanidine due to issues with her blood pressure in the hospital. I encouraged her to use Voltaren gel as needed to her left knee, if it becomes problematic and to discuss with her orthopedic this meloxicam medication. 4. The patient will return in one month. At that time, we will collect a random drug screen. Time spent with the patient in consultation, reviewing recent studies and clinical notes and physician reports, physical exam and correlation of findings, medical documentation to be determine possible treatment options x 15 minutes. Time spent preparing for appointment reviewing prescription monitoring reports, reviewing previous records and proposed treatment options, reviewing current [address] [address] PAIN MANAGEMENT CONSULTATION Name: AUSTYN GARRIDO Room #: REG [facility]#: [id number] Admission: 08/21/20 Attend Phys: Sahara Golden Discharge: Date of : 56 Report #: [id number] medications is 5 minutes. Time spent preparing and sending electronic prescriptions with collaborating physician, Dr. Chay Mon, documentation of visit and plan of treatment is 5 minutes. Total time spent 25 minutes. Sahara Hocker, SHOESHINER AH/VAN <ELECTRONICALLY SIGNED> By: Sahara Golden 08/21/20 1439 [id number] Sahara Golden /nt
== END | disposition home or self-care (01) ==
LOC: PAIN 08:02
PROVIDERS: ATTEND Clinical Nurse Specialist Adult Health
DX: M25.552 Pain in left hip (principal); M16.12 Unilateral primary osteoarthritis, left hip; G89.29 Other chronic pain; I10 Essential (primary) hypertension; F41.9 Anxiety disorder, unspecified; E66.9 Obesity, unspecified; Z96.642 Presence of left artificial hip joint; Z98.890 Other specified postprocedural states; Z79.899 Other long term (current) drug therapy; Z68.30 Body mass index [BMI] 30.0-30.9, adult; Z88.8 Allergy status to other drugs, medicaments and biological substances

== ENCOUNTER → 2020-09-18 | Outpatient (CLI) | payer OTHER ==
[~2020-09-18] VITALS: Ht 180.3 cm; Wt 104.3 kg
[2020-09-18 08:58] VITALS: BP 151/84
--- NOTE | 2020-09-18 09:01 | NUR ---
Pain Clinic Assessment: 1. History of Osteoarthritis: HIPS KNEES History of Rheumatoid Arthritis: NONE 2. Height: 5 ft. 11 in. 180.3 cm. Weight: 230.0 lb. oz. 104.328 kg. Patient's BMI: 32.1 3. Vital Signs: BP: 151/84 Pulse: 74 Resp: 16 Temp: 02 Sat: 97 ECG Mon: 4. Pain Intensity: 3 5. Fall Risk: Dizziness: N Needs help standing or walking: N Fallen in the last 3 months: N Fall risk comments: 6. Patient on Blood Thinner: None 7. History of Hypertension: Y 8. Opioid Therapy greater than 6 weeks: Y Opiate Contract Signed: 06/12/20 9. Risk Assessment Tool Provided: LOW-0 10. Functional Assessment Tool: 11. Recreational Drug Use: Never Drug Type: Tobacco Use: Never Smoker Tobacco Type: Amount or Packs/day: How Many Years: Alcohol Use: Yes Frequency: Quant:
--- NOTE | 2020-09-19 07:31 | HPC ---
[facility] [address] [address] PAIN MANAGEMENT CONSULTATION Name: AUSTYN GARRIDO [id number] Admission: 09/18/20 Attend Phys: Sahara Golden Discharge: Date of : 56 Report #: [id number] THIS REPORT FOR: cc: MILAGROS KNOWLES Physician not on staff Sahara Golden ~ DOC #: [id number] cc: Elvira Leyva MD Amanda Hocker, JOSLYN DATE OF SERVICE: 09/18/2020 CHIEF COMPLAINT: Chronic left hip pain and knee pain. HISTORY OF PRESENT ILLNESS: As you know, this is a 60-year-old female who recently underwent a total hip replacement in August. Today, she is reporting a pain score of 3/10, stating that her hip in general is doing quite well. She does continue her exercises at home. Recently, her pain has been increased in her elbows and her hands as well as her knees. She believes that she is having significant arthritic issues that has started since her surgery. She reports that her pain is an aching sensation, worse with walking and getting started in the morning. Overall, she believes that her medication is beneficial and helping reduce her overall pain. She denies any constipation or daytime somnolence as a result of her medications. 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 ALLERGIES: MORPHINE, CODEINE. CURRENT LIST OF MEDICATIONS: Tramadol ER 200 mg daily, Lyrica 75 mg b.i.d., Singulair, Crestor, Zoloft, Topamax, multivitamin, gabapentin, probiotic, multivitamin, Protonix, Claritin, Tylenol Arthritis, and Meloxicam 15 mg daily. PQRS: 1. She has osteoarthritic changes in her hips and knees. Denies any rheumatoid arthritis. Height is 5 feet 11 inches, weight is 230, BMI is 32. 2. Vital signs 151/84, pulse is 74, respirations 16, oxygen sat is 97%. Pain score is 3/10. 3. Denies dizziness. Does use a cane occasionally for ambulation, has not fallen in the last 3 months. 4. The patient is not on any blood thinners, but does take medicine for hypertension. Opioid therapy is greater than six weeks; therefore, an opioid signed contract is on the chart. Risk assessment is low. Functional assessment is 36/70. 5. Recreational drug use, she denies. She is not a smoker and occasionally drinks alcohol. According to the prescription monitoring system, the patient is filling [address] [address] PAIN MANAGEMENT CONSULTATION Name: AUSTYN GARRIDO Room #: REG [facility] [place]#: [id number] Admission: 09/18/20 Attend Phys: Sahara Golden Discharge: Date of : 56 Report #: [id number] appropriately in a timely fashion. She is due to fill her medications today. Her morphine mEq is 22 MME according to the CDC guidelines. We will check a random drug screen on this patient today. PHYSICAL EXAMINATION: GENERAL: This is alert and orientated well-developed, well-nourished, well-hydrated 60-year-old female who is rating her pain score today at 3/10. HEENT: Normocephalic, atraumatic. Extraocular eye muscles are intact. She is wearing a mask. MUSCULOSKELETAL: She is without significant scoliosis, kyphosis, or lordosis. Tenderness in her knees bilaterally, greater on the right. She has an antalgic gait and uses a cane for assistance with ambulation. EXTREMITIES: Tenderness in her hands bilaterally today with no edema noted. IMPRESSION: 1. Chronic hip pain, recent total left hip replacement. 2. Anxiety disorder. 3. Arthralgias of the pelvis, hip, knees and hands. 4. Essential hypertension. 5. Obesity. 6. Complex medical management utilizing scheduled opioid medications. We reviewed the fact that opiate medications are being used to provide analgesia adequate to support activities of daily living, not attempting to achieve a specific pain score on the 0-10 Visual Analog Scale. The current opiate medications are providing sufficient analgesia to allow the patient to participate in activities of daily living. The patient is not exhibiting any aberrant behavior suggestive of drug diversion. The patient is not having any adverse reactions to medications. The patient is not suffering from daytime somnolence or mental acuity changes. The patient is managing opiate-induced constipation with appropriate pyry-rix-iwnomiz agents and dietary considerations. The patient was counseled on concern for caution with operating a motor vehicle while using opiate medications. PLAN: 1. We discussed treatment options with the patient today. The patient feels her pain has increased since her surgery and multiple joints. She recently started meloxicam, but is unsure if this has been beneficial. I encouraged her to try to rotate her tramadol 200 mg extended release from nighttime to daytime to see if this is beneficial in helping decrease some of her pain as well as utilizing heat and ice. Encourage exercise also to help decrease some inflammation. 2. We also discussed to watch her diet and try to eat foods that have less inflammation associated with them. The patient states she has also started some vctn-thq-sjvtvmg turmeric and other supplements. 3. We will continue her on her tramadol ER, #30 with no refills. The patient [facility] [address] [place] [address] PAIN MANAGEMENT CONSULTATION Name: AUSTYN GARRIDO Room #: REG [facility]#: [id number] Admission: 09/18/20 Attend Phys: Sahara Golden Discharge: Date of : 56 Report #: [id number] will return in one month. At that time, we will assess seeing her every 2-month intervals. We did collect a random drug screen on her today. We did discuss her gabapentin and Lyrica use. She was continued on both of these medications, but it is our goal to hopefully decrease her Lyrica as she progresses postoperatively. Time spent with the patient in consultation, reviewing pertinent imaging and recent studies, clinical notes and physician reports, physical examination and correlation of findings and medical documentation to determine possible treatment options is 15 minutes. Time spent in preparation for appointment reviewing prescription monitoring reports, reviewing previous records and proposed treatment options, reviewing current medications is 5 minutes. Time spent preparing and sending electronic prescriptions with Dr. Chay Mon, my collaborating physician and documentation of visit and plan of treatment is 5 minutes. Total time spent 25 minutes. JOSLYN Jimenes/REINALDO <ELECTRONICALLY SIGNED> By: Sahara Golden 09/19/20 0731 [id number] [id number] Sahara gomez
== END ==
LOC: PAIN 06:57
PROVIDERS: ATTEND Clinical Nurse Specialist Adult Health
DX: G89.29 Other chronic pain (principal); I10 Essential (primary) hypertension; E66.9 Obesity, unspecified; F41.9 Anxiety disorder, unspecified; Z79.891 Long term (current) use of opiate analgesic; Z79.899 Other long term (current) drug therapy; Z96.642 Presence of left artificial hip joint

== ENCOUNTER → 2020-10-16 | Outpatient (CLI) | payer OTHER ==
[~2020-10-16] VITALS: Ht 180.3 cm; Wt 101.4 kg
[~2020-10-16] MED LIST changes: +LISINOPRIL10 MG PO
[2020-10-16 08:00] VITALS: BP 128/85
--- NOTE | 2020-10-16 08:10 | NUR ---
Pain Clinic Assessment: 1. History of Osteoarthritis: HIPS KNEES History of Rheumatoid Arthritis: NONE 2. Height: 5 ft. 11 in. 180.3 cm. Weight: 223.6 lb. oz. 101.424 kg. Patient's BMI: 31.2 3. Vital Signs: BP: 128/85 Pulse: 79 Resp: 16 Temp: 02 Sat: 98 ECG Mon: 4. Pain Intensity: 0 5. Fall Risk: Dizziness: N Needs help standing or walking: N Fallen in the last 3 months: N Fall risk comments: 6. Patient on Blood Thinner: None 7. History of Hypertension: Y 8. Opioid Therapy greater than 6 weeks: Y Opiate Contract Signed: 06/12/20 9. Risk Assessment Tool Provided: LOW-0 10. Functional Assessment Tool: 11. Recreational Drug Use: Never Drug Type: Tobacco Use: Never Smoker Tobacco Type: Amount or Packs/day: How Many Years: Alcohol Use: Yes Frequency: Quant:
--- NOTE | 2020-10-17 08:36 | HPC ---
[facility] [place] [address] PAIN MANAGEMENT CONSULTATION Name: AUSTYN GARRIDO [id number] Admission: 10/16/20 Attend Phys: Sahara Golden Discharge: Date of : 56 Report #: [id number] THIS REPORT FOR: cc: MILAGROS KNOWLES Physician not on staff Sahara Golden ~ cc: Elvira Mon MD, ____ ____ DATE OF SERVICE: 10/16/2020 CHIEF COMPLAINT: Chronic left hip pain and knee pain. HISTORY OF PRESENT ILLNESS: This is a 60-year-old female who returns to the pain clinic today reporting no pain. Currently, she states that the current medication regimen is very beneficial in controlling her pain as well. She has also started some wxzj-thy-kwqlslg medications that she believes has been beneficial in helping reduce some of her inflammation. These medications include tart monroy extract, turmeric green tea extract and living well supplements. The patient normally has pain in her left hip and has recently had a total hip replacement in August. Today, she is doing quite well, walking without a cane and has graduated from physical therapy. She does continue to do strengthening exercises at home. The patient also reports having both knees injected recently from her orthopedic doctor and feels that, that has been beneficial in helping reduce her overall pain as well. She denies any constipation issues. She reports her pain as an aching sensation and her most problematic time is getting up from a chair. ALLERGIES: OPIOIDS AND CODEINE. CURRENT LIST OF MEDICATIONS: Include lisinopril, tramadol ER 200 mg, Lyrica 75 b.i.d., Singulair, Crestor, Zoloft, Topamax, multivitamin, gabapentin, probiotic, vitamin D3, Protonix, Claritin, Tylenol Arthritis, tart monroy extract, turmeric green tea extract and living well. PQRS: She has arthritic changes in her hips, knees and hands. Denies any rheumatoid arthritis. Height is 5 feet 11 inches, weight is 223, BMI is 31. Vital signs; blood pressure 128/85, pulse is 79, respirations 16, oxygen sat is 98%. Pain score 0/10. Fall risk, denies dizziness, does not need help walking or standing, has not fallen in the last 3 months. The patient is not on any blood thinners, but does take medicine for hypertension. Opioid therapy is greater than 6 weeks; therefore, an opioid signed contract is on the chart, risk assessment is low. Functional assessment is 36/70. Recreational drug use, she denies. She is not a smoker and occasionally drinks alcohol. According to the prescription monitoring system, the patient is filling appropriately. She is due to fill her medications this weekend. Her morphine milliequivalent is 20 MMEs. There is a recent drug screen on the chart that is [address] [address] PAIN MANAGEMENT CONSULTATION Name: AUSTYN GARRIDO Dorothy Room #: REG [facility] Bridges#: [id number] Admission: 10/16/20 Attend Phys: Sahara Golden Discharge: Date of : 56 Report #: [id number] appropriate for her medications. PHYSICAL EXAMINATION: GENERAL: This is a well-developed, well-nourished, slightly obese 60-year-old female who is alert and orientated and a good historian, rating her pain score today a 0/10. HEENT: Normocephalic, atraumatic. Extraocular eye muscles are intact. She is wearing a mask. MUSCULOSKELETAL: She is without significant scoliosis, kyphosis, or lordosis. She walks with a slightly antalgic gait with no cane or assistive devices today. Tenderness in her knees bilaterally, greater on the left than the right. No edema noted. IMPRESSION: 1. Chronic hip pain, recent total left hip replacement. 2. Arthralgias of the hip, knees and hands. 3. Anxiety disorder. 4. Essential hypertension. 5. Obesity. 6. Complex medical management utilizing scheduled opioid medications. We reviewed the fact that opiate medications are being used to provide analgesia adequate to support activities of daily living, not attempting to achieve a specific pain score on the 0-10 Visual Analog Scale. The current opiate medications are providing sufficient analgesia to allow the patient to participate in activities of daily living. The patient is not exhibiting any aberrant behavior suggestive of drug diversion. The patient is not having any adverse reactions to medications. The patient is not suffering from daytime somnolence or mental acuity changes. The patient is managing opiate-induced constipation with appropriate layw-dud-ptfwtme agents and dietary considerations. The patient was counseled on concern for caution with operating a motor vehicle while using opiate medications. A physical exam was performed and the patient's functional status was evaluated. All patients with back pain were advised against the bed rest greater than 4 days and were advised to return to normal activities. Pain score assessment was noted and the treatment plan was reviewed with the patient. All current medications, both prescribed and OTC were reviewed and reconciled on the electronic medical record. Tobacco screening was accomplished and smoking cessation was advised when indicated. BMI was noted and diet/exercise modification was recommended for all patients following outside normal parameters. I reviewed with the patient today their responsibilities to safeguard prescription medications, reviewed their responsibility to utilize medications only as prescribed by the physician. They are to seek and receive pain [facility] [address] [place] [address] PAIN MANAGEMENT CONSULTATION Name: AUSTYN GARRIDO Room #: REG [facility]DRA Bridges#: [id number] Admission: 10/16/20 Attend Phys: Sahara GERI Golden Discharge: Date of : 56 Report #: [id number] medications only from 1 physician group ( [facility]). They are to use 1 pharmacy and keep the clinic informed if they change pharmacies. Their responsibilities include making followup visits in a timely fashion and to avoid abrupt discontinuation of medication usage. Their responsibilities further include bringing their medications (bottles from the pharmacy with residual pills) to the visit for possible confirmation of pill counts and the patient understands it is their responsibility to submit to random drug screens to ensure both that the medications prescribed are present, and that no other controlled substances are present. All prescriptions provided today were generated electronically. PLAN: 1. We discussed treatment options with the patient today. The patient finds her medication very beneficial in helping reduce her pain. We may consider decreasing her tramadol dose in the future, but we will continue her tramadol 200 mg once a day. The patient did try to take this in the daytime hours instead of right before bed, but did cause significant somnolence, so she has returned to evening dosing. Scripts will be sent for 2 months. At this time, she has been a patient for a year on monthly visits here in our clinic. Dr. Mon will send them electronically. 2. We will continue her on her Lyrica 75 mg b.i.d., #60 with 1 additional refill as well. 3. We did discuss her upcoming visit in 2 months. She is scheduled to have cataract surgery around that time. I explained to her that if she needs to make slight adjustment and have it earlier, we can always release her medications closer to the actual date to allow her to be able to drive prior to surgery. Time spent with the patient in consultation, reviewing recent studies and clinical notes and physician reports, physical examination and correlation of findings and medical documentation to determine possible treatment options, 15 minutes. Time spent in preparation for appointment, reviewing prescription monitoring system reports, recent urine drug screen, reviewing previous records and proposed treatment options and reviewing current medications, 5 minutes. Time spent preparing and sending electronic prescriptions with Dr. Chay Mon, my collaborating physician and documentation of visit and plan of treatment, 5 minutes. Total time spent 25 minutes. <ELECTRONICALLY SIGNED> By: Sahara Golden 10/17/20 [id number] Sahara Golden /juana
== END ==
LOC: PAIN 07:11
PROVIDERS: ATTEND Clinical Nurse Specialist Adult Health
DX: M25.552 Pain in left hip (principal); M19.90 Unspecified osteoarthritis, unspecified site; I10 Essential (primary) hypertension; E66.9 Obesity, unspecified; F41.9 Anxiety disorder, unspecified; Z79.891 Long term (current) use of opiate analgesic; Z79.899 Other long term (current) drug therapy

== ENCOUNTER → 2020-12-25 | Outpatient (CLI) | payer OTHER ==
[~2020-12-25] VITALS: Ht 180.3 cm; Wt 103.7 kg
[~2020-12-25] MED LIST changes: +FISH OIL 1,2001 EAC3 PO; +GREEN TEA PO; +TART CHERRY E1000 MG PO; +TUMERIC PO
[2020-12-25 08:00] VITALS: BP 128/84
--- NOTE | 2020-12-25 08:17 | NUR ---
Pain Clinic Assessment: 1. History of Osteoarthritis: HIPS KNEES History of Rheumatoid Arthritis: NONE 2. Height: 5 ft. 11 in. 180.3 cm. Weight: 228.6 lb. oz. 103.692 kg. Patient's BMI: 31.9 3. Vital Signs: BP: 128/84 Pulse: 81 Resp: 16 Temp: 02 Sat: 96 ECG Mon: 4. Pain Intensity: 0 SITTING 3 STANDING 5. Fall Risk: Dizziness: N Needs help standing or walking: N Fallen in the last 3 months: N Fall risk comments: 6. Patient on Blood Thinner: None 7. History of Hypertension: Y 8. Opioid Therapy greater than 6 weeks: Y Opiate Contract Signed: 06/12/20 9. Risk Assessment Tool Provided: LOW-0 10. Functional Assessment Tool: 11. Recreational Drug Use: Never Drug Type: Tobacco Use: Never Smoker Tobacco Type: Amount or Packs/day: How Many Years: Alcohol Use: Yes Frequency: Quant:
--- NOTE | 2020-12-25 13:55 | HPC ---
[facility] [address] [address] PAIN MANAGEMENT CONSULTATION Name: AUSTYN GARRIDO Room #: REG [facility].#: [id number] Admission: 12/25/20 Attend Phys: Sahara Golden Discharge: Date of : 56 Report #: [id number] THIS REPORT FOR: cc: MILAGROS KNOWLES Physician not on staff Sahara Golden ~ cc: Elvira Mon MD DATE OF SERVICE: 12/25/2020 CHIEF COMPLAINT: Chronic left hip pain and bilateral knee pain. HISTORY OF PRESENT ILLNESS: This is a very pleasant 60-year-old female who is well known to the pain clinic for her ongoing pain issues in her hips and knees bilaterally. Today, the patient reports a pain score of 0-3 depending on her activity. She reports standing longer than 20 minutes does increase her pain significantly such as washing dishes. She does report that she is able to clean the house and has less pain when she is up and moving. She does find the tramadol extended release and Lyrica very beneficial in helping decrease her pain. The patient reports that she had cortisone injections in her knees about 3 months ago and has found significant relief from those injections. She is considering having Synvisc injections in her knees later this year and is hopeful to prolong having knee replacement until sometime next year as possible. Today, she would like renewals of her medications. She denies any somnolence or constipation issues with the medications. ALLERGIES: MORPHINE AND CODEINE. CURRENT LIST OF MEDICATIONS: Tramadol ER 200 mg, Lyrica 75 mg, lisinopril, Singulair, Crestor, sertraline, Topamax, multivitamin, gabapentin, probiotic, vitamin D3 complex, Protonix, Tylenol Arthritis, tumeric, fish oil, and Claritin. PQRS: 1. She has osteoarthritic changes in her hips and knees. Denies any rheumatoid arthritis. Height is 5 feet 11 inches, weight is 223, BMI is 31. 2. Vital signs: 128/85, pulse is 79, respirations 16, oxygen sat is 98. 3. Pain score 0/10. 4. Denies dizziness, does not need help walking or standing, has not fallen in the last 3 months. 5. The patient is not on blood thinners, but does take medicine for hypertension. 6. Opioid therapy is greater than 6 weeks; therefore, an opioid signed contract is on the chart. Risk assessment is low. Functional assessment is 36/70. 7. Recreational drug use, she denies. She is not a smoker [place] [address] PAIN MANAGEMENT CONSULTATION Name: AUSTYN GARRIDO Room #: REG MARIA ALEJANDRA Bridges#: [id number] Admission: 12/25/20 Attend Phys: Sahara Golden Discharge: Date of : 56 Report #: [id number] According to the prescription monitoring system, she is due to fill her medications this week. She fills timely. Her morphine milliequivalent is 20 MME according to the CDC guidelines. There is a urine drug screen on the chart that is appropriate for her medications as well. PHYSICAL EXAMINATION: GENERAL: This is alert and orientated, well-developed, well-nourished 60-year-old female who appears her stated age, placing her current pain score from 0-3 depending on activity. HEENT: Normocephalic, atraumatic. Extraocular eye muscles are intact. She is wearing a mask for COVID precautions. MUSCULOSKELETAL: She is without significant scoliosis, kyphosis, or lordosis. She has an antalgic gait. She has tenderness in her knees bilaterally, greater on the left. The pain is increased with ambulation. Tenderness in her left hip as well. Pain radiates into the groin area at times. IMPRESSION: 1. Chronic hip pain, recent total left hip replacement. Arthralgias of the hip, knees and hands. 2. Anxiety disorder. 3. Essential hypertension. 4. Obesity. 5. Complex medical management utilizing scheduled opioid medications. PLAN: 1. We discussed treatment options with the patient today. The patient feels that the tramadol and Lyrica are beneficial in helping reduce significant portion of her pain. We will have Dr. Mon send electronically tramadol 200 ER, #30 with one refill and Lyrica 75 mg b.i.d., #60 with 1 refill. 2. We did discuss total knee replacement versus steroid injections and Synvisc. The patient may consider having Synvisc later this year. She has met her deductible for the year and would like to see if she can prolong knee replacement until sometimes next year. 3. The patient has had her COVID vaccines and has been staying healthy. Time spent with the patient in consultation, reviewing recent studies and clinical notes and physician reports, physical examination and correlation of findings and medical documentation to determine possible treatment options 12 minutes. Time spent in preparation for appointment, reviewing prescription monitoring system reports, recent urine drug screens, reviewing previous records and proposed treatment options and current medications 5 minutes. Time spent preparing and sending electronic prescriptions with Dr. Chay Mon, my [address] [address] PAIN MANAGEMENT CONSULTATION Name: AUSTYN GARRIDO Room #: REG MARIA ALEJANDRA HastingsYoselyn#: [id number] Admission: 12/25/20 Attend Phys: Sahara Golden Discharge: Date of : 56 Report #: [id number] collaborating physician, documentation of visit and plan of treatment 5 minutes. Total time spent 22 minutes. <ELECTRONICALLY SIGNED> By: Sahara Golden 12/25/20 1355 [id number] [id number] Sahara Golden /juana
== END ==
LOC: PAIN 06:54
PROVIDERS: ATTEND Clinical Nurse Specialist Adult Health
DX: M19.90 Unspecified osteoarthritis, unspecified site (principal); G89.29 Other chronic pain; F41.9 Anxiety disorder, unspecified; I10 Essential (primary) hypertension; E66.9 Obesity, unspecified; Z79.891 Long term (current) use of opiate analgesic; Z79.899 Other long term (current) drug therapy; Z96.642 Presence of left artificial hip joint

== ENCOUNTER → 2021-02-12 | Outpatient (CLI) | payer OTHER ==
[~2021-02-12] VITALS: Ht 180.3 cm; Wt 107.9 kg
[2021-02-12 08:36] VITALS: BP 131/87
--- NOTE | 2021-02-12 08:44 | NUR ---
Pain Clinic Assessment: 1. History of Osteoarthritis: HIPS KNEES History of Rheumatoid Arthritis: NONE 2. Height: 5 ft. 11 in. 180.3 cm. Weight: 237.8 lb. oz. 107.866 kg. Patient's BMI: 33.2 3. Vital Signs: BP: 131/87 Pulse: 78 Resp: 16 Temp: 02 Sat: 98 ECG Mon: 4. Pain Intensity: 0 5. Fall Risk: Dizziness: N Needs help standing or walking: N Fallen in the last 3 months: N Fall risk comments: 6. Patient on Blood Thinner: None 7. History of Hypertension: Y 8. Opioid Therapy greater than 6 weeks: Y Opiate Contract Signed: 06/12/20 9. Risk Assessment Tool Provided: LOW-0 10. Functional Assessment Tool: 11. Recreational Drug Use: Never Drug Type: Tobacco Use: Never Smoker Tobacco Type: Amount or Packs/day: How Many Years: Alcohol Use: Yes Frequency: Special Occasions Quant: 1
== END ==
LOC: PAIN 08:25
PROVIDERS: ATTEND Anesthesiology Pain Medicine
DX: M25.521 Pain in right elbow (principal); M25.552 Pain in left hip; M54.50 Low back pain, unspecified; M16.12 Unilateral primary osteoarthritis, left hip; R19.7 Diarrhea, unspecified; I10 Essential (primary) hypertension; K21.9 Gastro-esophageal reflux disease without esophagitis; E66.9 Obesity, unspecified; F41.8 Other specified anxiety disorders; Z90.49 Acquired absence of other specified parts of digestive tract; Z95.2 Presence of prosthetic heart valve; Z90.710 Acquired absence of both cervix and uterus; Z88.8 Allergy status to other drugs, medicaments and biological substances; Z79.899 Other long term (current) drug therapy

== ENCOUNTER → 2021-04-25 | Outpatient (CLI) | payer OTHER ==
[~2021-04-25] VITALS: Ht 180.3 cm; Wt 109.2 kg
[2021-04-25 09:01] VITALS: BP 119/77
--- NOTE | 2021-04-25 09:24 | NUR ---
Pain Clinic Assessment: 1. History of Osteoarthritis: HIPS KNEES History of Rheumatoid Arthritis: NONE 2. Height: 5 ft. 11 in. 180.3 cm. Weight: 240.8 lb. oz. 109.226 kg. Patient's BMI: 33.6 3. Vital Signs: BP: 119/77 Pulse: 75 Resp: 16 Temp: 02 Sat: 99 ECG Mon: 4. Pain Intensity: 0 5. Fall Risk: Dizziness: N Needs help standing or walking: N Fallen in the last 3 months: N Fall risk comments: 6. Patient on Blood Thinner: None 7. History of Hypertension: Y 8. Opioid Therapy greater than 6 weeks: Y Opiate Contract Signed: 06/12/20 9. Risk Assessment Tool Provided: LOW-0 10. Functional Assessment Tool: 11. Recreational Drug Use: Never Drug Type: Tobacco Use: Never Smoker Tobacco Type: Amount or Packs/day: How Many Years: Alcohol Use: Yes Frequency: Quant:
== END ==
LOC: PAIN 07:38
PROVIDERS: ATTEND Clinical Nurse Specialist Adult Health
DX: G89.29 Other chronic pain (principal); M16.12 Unilateral primary osteoarthritis, left hip; M19.90 Unspecified osteoarthritis, unspecified site; I48.91 Unspecified atrial fibrillation; M17.0 Bilateral primary osteoarthritis of knee; I10 Essential (primary) hypertension; F41.9 Anxiety disorder, unspecified; Z88.8 Allergy status to other drugs, medicaments and biological substances; Z79.899 Other long term (current) drug therapy